=== PATIENT | female | born 1990 | race Hispanic/Latino ===

== ENCOUNTER 2019-07-17 09:00 | Emergency (ER) | payer MEDICAID ==
[2019-07-17 09:18] LABS: APPEARANCE,URINE Cloudy (CLEAR); BILIRUBIN,URINE Negative (NEGATIVE); COLOR,URINE Yellow (YELLOW); GLUCOSE, URINE (UA) Negative (NEGATIVE); KETONES,URINE Negative (NEGATIVE); LEUKOCYTE ESTERASE ,URINE Moderate (NEGATIVE); NITRATE,URINE Negative (NEGATIVE); OCCULT BLOOD,URINE Negative (NEGATIVE); PH,URINE 5.5 (5.0-8.0); PROTEIN,URINE Negative (NEGATIVE)
[2019-07-17 09:21] LABS: HCG,QUAL RESULT NEGATIVE (NEGATIVE)
[2019-07-17 09:33] LABS: BASOPHILS % (AUTO) 0.3 % (0.0-5.0); EOSINOPHILS % (AUTO) 2.3 % (0.0-8.0); HEMATOCRIT 37.1 % (36-48); LYMPHOCYTES % (AUTO) 9.3 % (21.0-51.0); MEAN CORPUSCULAR HEMOGLOBIN 26.8 pg (27.0-33.0); MEAN CORPUSCULAR HGB CONC 33.3 g/dL (32.0-36.0); MEAN CORPUSCULAR VOLUME 80.5 fL (79-99); MONOCYTES % (AUTO) 4.5 % (3.0-13.0); NEUTROPHILS % (AUTO) 83.6 % (40.0-77.0); PLATELET COUNT (AUTO) 293 K/uL (130-400); RED BLOOD CELL COUNT(AUTO) 4.61 MIL/uL (4.00-5.50); RED CELL DISTRIBUTION WIDTH 14.1 % (11.0-15.5); WHITE BLOOD COUNT (AUTO) 14.7 K/uL (4.8-10.8)
[2019-07-17 09:34] LABS: CREATININE 0.7 mg/dL (0.5-1.5); POTASSIUM 4.2 mmol/L (3.5-5.1)
[2019-07-17 09:39] LABS: ALBUMIN 3.7 g/dL (3.5-5.0); BILIRUBIN,TOTAL 0.6 mg/dL (0.2-1.0); TOTAL PROTEIN, SERUM 7.8 g/dL (6.0-8.3)
[2019-07-17 09:43] LABS: BACTERIA,URINE Few /HPF (None Seen); MUCUS,URINE Many LPF (None Seen); RBC,URINE None Seen /HPF (0-1)
[2019-07-17 09:44] LABS: CALCIUM OXALATE CRYSTALS,UR Moderate /LPF (None Seen)
== END 2019-07-17 11:48 | disposition home or self-care (01) ==
LOC: EDH 09:00
DX: K80.50 Calculus of bile duct without cholangitis or cholecystitis without obstruction (principal)
CPT/HCPCS: 36415; 76705; 80053; 81001; 81025; 83690; 85025

== ENCOUNTER 2019-07-17 22:21 | Inpatient (IN) | payer MEDICAID ==
[~2019-07-17] VITALS: Ht 167.6 cm; Wt 87.5 kg
[2019-07-17] MEDS ORDERED: SODIUM CHLORIDE 0.9% 1000ML 2,000 ML IV ONE (22:45)
[2019-07-17 22:48] LABS: APPEARANCE,URINE Clear (CLEAR); BILIRUBIN,URINE Negative (NEGATIVE); COLOR,URINE Dark Yellow (YELLOW); GLUCOSE, URINE (UA) Negative (NEGATIVE); KETONES,URINE Negative (NEGATIVE); LEUKOCYTE ESTERASE ,URINE Small (NEGATIVE); NITRATE,URINE Negative (NEGATIVE); OCCULT BLOOD,URINE Negative (NEGATIVE); PH,URINE 6.5 (5.0-8.0); PROTEIN,URINE Negative (NEGATIVE)
[2019-07-17] MEDS ORDERED: FAMOTIDINE/PF 20 MG/2 ML VIAL IV ONE (22:48)
[2019-07-17] MEDS ORDERED: ONDANSETRON HCL 4 MG/2 ML VIAL ONE (22:48)
[2019-07-17] MEDS ORDERED: METOCLOPRAMIDE 10 MG/2 ML VIAL ONE (22:48)
[2019-07-17 22:51] LABS: BASOPHILS % (AUTO) 0.6 % (0.0-5.0); EOSINOPHILS % (AUTO) 2.3 % (0.0-8.0); HEMATOCRIT 36.3 % (36-48); LYMPHOCYTES % (AUTO) 15.6 % (21.0-51.0); MEAN CORPUSCULAR HEMOGLOBIN 26.4 pg (27.0-33.0); MEAN CORPUSCULAR HGB CONC 32.9 g/dL (32.0-36.0); MEAN CORPUSCULAR VOLUME 80.3 fL (79-99); NEUTROPHILS % (AUTO) 75.5 % (40.0-77.0); NUCLEATED RED BLOOD CELLS 0.1 % (0.0-0.19); PLATELET COUNT (AUTO) 299 K/uL (130-400); RED BLOOD CELL COUNT(AUTO) 4.53 MIL/uL (4.00-5.50); RED CELL DISTRIBUTION WIDTH 14.3 % (11.0-15.5); WHITE BLOOD COUNT (AUTO) 11.2 K/uL (4.8-10.8)
[2019-07-17 23:00] LABS: BACTERIA,URINE Few /HPF (None Seen); MUCUS,URINE Few LPF (None Seen); RBC,URINE 0-1 /HPF (0-1); SQUAMOUS EPITHELIAL CELL,UR 0-2 /HPF (0-2); WBC,URINE 0-1 /HPF (0-1)
[2019-07-17 23:06] LABS: INR 0.97 (0.85-1.15); PROTHROMBIN TIME 10.2 SEC (9.6-11.6)
[2019-07-17 23:08] LABS: CREATININE 0.7 mg/dL (0.5-1.5); POTASSIUM 3.6 mmol/L (3.5-5.1)
[2019-07-17 23:12] LABS: ALBUMIN 3.8 g/dL (3.5-5.0); BILIRUBIN,TOTAL 1.2 mg/dL (0.2-1.0); TOTAL PROTEIN, SERUM 7.5 g/dL (6.0-8.3)
[2019-07-18] MEDS ORDERED: ZOSYN 3.375GM+NS 50ML 50 ML IV ONE (00:38)
[2019-07-18] MEDS ORDERED: ACETAMINOPHEN 325 MG TAB PO PRN (02:15)
[2019-07-18 05:48] LABS: BASOPHILS % (AUTO) 0.4 % (0.0-5.0); EOSINOPHILS % (AUTO) 1.1 % (0.0-8.0); HEMATOCRIT 34.3 % (36-48); LYMPHOCYTES % (AUTO) 13.7 % (21.0-51.0); MEAN CORPUSCULAR HEMOGLOBIN 26.9 pg (27.0-33.0); MEAN CORPUSCULAR HGB CONC 33.6 g/dL (32.0-36.0); MEAN CORPUSCULAR VOLUME 80.2 fL (79-99); MONOCYTES % (AUTO) 5.4 % (3.0-13.0); NEUTROPHILS % (AUTO) 79.4 % (40.0-77.0); PLATELET COUNT (AUTO) 230 K/uL (130-400); RED BLOOD CELL COUNT(AUTO) 4.27 MIL/uL (4.00-5.50); RED CELL DISTRIBUTION WIDTH 13.9 % (11.0-15.5); WHITE BLOOD COUNT (AUTO) 9.6 K/uL (4.8-10.8)
[2019-07-18 05:57] LABS: CREATININE 0.6 mg/dL (0.5-1.5); POTASSIUM 3.8 mmol/L (3.5-5.1)
[2019-07-18 06:13] LABS: ALBUMIN 2.9 g/dL (3.5-5.0); BILIRUBIN,TOTAL 1.9 mg/dL (0.2-1.0); TOTAL PROTEIN, SERUM 6.1 g/dL (6.0-8.3)
[2019-07-18 08:00] VITALS: BP 120/78
[2019-07-18] MEDS ORDERED: ZOSYN 3.375GM+NS 50ML 50 ML IV SCH (08:00)
--- NOTE | 2019-07-18 08:00 | NUR ---
PT AAO X 3 REVIEW PLAN OF CARE. PT HISTORY WAS BORN WITH CATARACT SINCE .STATED THAT SHE HAS SOME VISIONAL SEE BLURRY, AND SHADOW AND NEEDS SOME ASSISTANCE SOME TIME REVIEW CALL LIGHT IN REACH ,AND BED LEVEL DOWN AND A REMINDER THAT SHE NEEDS TO STAY IN BED . AND NOT TO GET UP. BY HER SELF .PT IS ABLE TO FOCUS WITH HER CARE.
--- NOTE | 2019-07-18 08:00 | NUR ---
HISTORY OF SEIZURES PADS. APPLICATION ON . PT STATED THAT SHE HAD THIS COMPLICATION DURING HER
--- NOTE | 2019-07-18 09:45 | NUR ---
DR. TREVINO CALLED ,REGARDING CONSULTATION ADMISSION LABS . AND DATA GIVEN
[2019-07-18 11:00] VITALS: BP 122/57
[2019-07-18] MEDS: SODIUM CHLORIDE 0.9% 1000ML 1,000 ML IV SCH ×2 (12:32→20:53)
[2019-07-18] MEDS: ZOSYN 3.375GM+NS 50ML 50 ML IV SCH ×2 (13:38→20:53)
--- NOTE | 2019-07-18 14:00 | NUR ---
DR. RACHEL HERE, AND REVIEW PLAN OF CARE, WITH TO FOLLOW .
[2019-07-18] MEDS ORDERED: GADODIAMIDE 10 MMOL/20 ML VIAL IV ONE (15:16)
[2019-07-18 16:00] VITALS: BP 122/77
--- NOTE | 2019-07-18 17:20 | NUR ---
cm note met with patient and states resides at home with aunt, brother Sagar, and boyfriend, pt states is ambulatory, no dme. is Blind, and does have someone always with her when ambulating. has provider approx 24hr/week. no dme. dcplan is back to home. no dc needs. Addendum: 07/18/19 at 1722 by OSWALD NEWMAN CM Amended: Links added.
--- NOTE | 2019-07-18 18:10 | NUR ---
PAGED .DR TREVINO REASON . MRSP .RESULTS NO RESPOND .
[2019-07-18 19:40] VITALS: BP 116/70
--- NOTE | 2019-07-18 20:53 | NUR ---
MEDS SHIFT ASSESSMENT DONE, PLEASE REFER TO CHART. DUE MEDS AND NEW IVF BAG HUNG. KEPT RESTED AND COMFORTABLE IN BED. CALL LIGHT WITHIN REACH. WILL MONITOR PT. Addendum: 07/19/19 at 0014 by TAZ MARIO RN RN Amended: Links added.
--- NOTE | 2019-07-18 21:40 | NUR ---
CALL TRIED TO CALL DR TREVINO VIA PHONE BUT NO ANSWERING SERVICE. [facility] NURSE MADE AWARE AND CP NUMBER OF MD OBTAINED. CALLED MD AND REFERRED MRCP RESULTS. NEW ORDERS GIVEN, PLEASE REFER TO CPOE.
[2019-07-18 23:39] VITALS: BP 110/65
[2019-07-19] VITALS (22 sets, daily range): BP systolic 110–142; BP diastolic 59–90
--- NOTE | 2019-07-19 02:00 | NUR ---
ROUNDS PT RESTING WELL, FAIRLY ASLEEP WITH RESPIRATIONS EVEN AND UNLABORED. NO NOTED DISTRESS. KEPT UNDISTURBED FOR NOW WILL MONITOR PT.
[2019-07-19] MEDS: ZOSYN 3.375GM+NS 50ML 50 ML IV SCH ×3 (04:47→20:56)
[2019-07-19] MEDS: SODIUM CHLORIDE 0.9% 1000ML 1,000 ML IV SCH ×3 (05:36→20:56)
[2019-07-19 05:51] LABS: MEAN CORPUSCULAR HEMOGLOBIN 27.5 pg (27.0-33.0); MEAN CORPUSCULAR HGB CONC 34.1 g/dL (32.0-36.0); MEAN CORPUSCULAR VOLUME 80.6 fL (79-99); PLATELET COUNT (AUTO) 264 K/uL (130-400); RED BLOOD CELL COUNT(AUTO) 4.34 MIL/uL (4.00-5.50); RED CELL DISTRIBUTION WIDTH 14.2 % (11.0-15.5); WHITE BLOOD COUNT (AUTO) 7.3 K/uL (4.8-10.8)
[2019-07-19 06:11] LABS: ALBUMIN 3.1 g/dL (3.5-5.0); BILIRUBIN,TOTAL 2.5 mg/dL (0.2-1.0); CREATININE 0.6 mg/dL (0.5-1.5); POTASSIUM 3.4 mmol/L (3.5-5.1); TOTAL PROTEIN, SERUM 6.6 g/dL (6.0-8.3)
--- NOTE | 2019-07-19 06:43 | NUR ---
CALLED DR TREVINO AND INFORMED OF LTF'S RESULTS. ORDER FOR ERCP AT 0745AM RECEIVED. [facility]OURCE NURSE MADE AWARE. FAXED ORDER TO [facility].
--- NOTE | 2019-07-19 07:25 | NUR ---
CONSENT REPORT GIVEN TO INCOMING SHIFT, DEBBIE PRESTON. AWAKENED PT THEN INFORMED PT OF ORDER FOR ERCP TODAY. PT VERBALIZES UNDERSTANDING. CONSENT SIGNED BY PT WITNESSED BY BROTHER JESSICA AND INSURANCE RATER. FOR MORE CARE AND MANAGEMENT.
--- NOTE | 2019-07-19 07:50 | NUR ---
TO GI LAB FOR A ERCP . STAFF AT THE BEDSIDE .
[2019-07-19] MEDS ORDERED: SUCCINYLCHOLINE 200MG/10ML SYR ONE (08:03)
[2019-07-19] MEDS ORDERED: LIDOCAINE PF 2% 5ML ABBOJECT ONE (08:03)
[2019-07-19] MEDS ORDERED: ROCURONIUM 10MG/1ML SYR 10 MG/ML ML ONE (08:04)
[2019-07-19] MEDS ORDERED: MIDAZOLAM HCL 1 MG/ML 2ML VIAL ONE (08:04)
[2019-07-19] MEDS ORDERED: PROPOFOL 10 MG/ML 20ML VIAL IV ONE ×2 (08:04→08:35)
[2019-07-19] MEDS ORDERED: ONDANSETRON HCL 4 MG/2 ML VIAL ONE (08:05)
[2019-07-19] MEDS ORDERED: FENTANYL CITRATE PF 50 MCG/1 ML 2ML VIAL ONE (08:07)
[2019-07-19] MEDS ORDERED: IOHEXOL-350 50ML VIAL IV ONE (08:17)
[2019-07-19] MEDS ORDERED: INDOMETHACIN 50 MG SUPP.RECT RC SCH (09:00)
--- NOTE | 2019-07-19 09:45 | NUR ---
PT BACK FROM GI LAB , PT AAO X [address] ORDERS AND POSTOP CARE. NO C/O OF PAIN HOB . BED LEVEL DOWN . CALL LIGHT IN REACH. POSTOP V/S MONITOR /
[2019-07-19] MEDS: HYDROMORPHONE HCL 2 MG/ML VIAL IVP PRN (16:48)
--- NOTE | 2019-07-19 21:00 | NUR ---
MEDS SHIFT ASSESSMENT DONE, PT COMPLAINT SOF ABDOMINAL PAINS AND NAUSEA. DUE MEDS ADMINISTERED, TYLENOL PO GIVEN FOR PAINS AND ZOFRAN GIVEN FOR NAUSEA. KEPT RESTED AND COMFORTABLE IN BED. INSTRUCTED PT TO BE NPO POST MN FOR SX IN AM, VERBALIZES UNDERSTANDING. CALL LIGHT WITHIN REACH. WILL RE-ASSESS PT. Addendum: 07/20/19 at 0210 by TAZ MARIO RN RN Amended: Links added.
[2019-07-19] MEDS: ONDANSETRON HCL 4 MG/2 ML VIAL IVP PRN (21:08)
[2019-07-20] VITALS (25 sets, daily range): BP systolic 118–138; BP diastolic 59–80
[2019-07-20] MEDS: SODIUM CHLORIDE 0.9% 1000ML 1,000 ML IV SCH ×4 (01:14→12:30)
[2019-07-20] MEDS: HYDROMORPHONE HCL 2 MG/ML VIAL IVP PRN ×2 (01:24→18:50)
--- NOTE | 2019-07-20 01:24 | NUR ---
PAIN PT AWAKENS AND COMPLAINTS OF ABDOMINAL PAINS. MEDICATED WITH DILAUDID IV. KEPT COMFORTABLE IN BED WITH HOB ELEVATED. WILL RE-ASSESS PT. CALL LIGHT WITHIN REACH. PT'S BROTHER ASLEEP AT BEDSIDE.
--- NOTE | 2019-07-20 03:55 | NUR ---
PAIN PT CLAIMS OF ABDOMINAL PAINS BUT INTERMITTENT. EXPLAINED THAT PAIN MEDS WERE JUST GIVEN 2 HOURS AGO AND CAN NOT BE GIVEN YET. PT VERBALIZES UNDERSTANDING. WARM PACKS APPLIED TO RUQ AREA. WILL RE-ASSESS PT. Addendum: 07/20/19 at 0402 by TAZ MARIO RN RN Amended: Links added.
[2019-07-20] MEDS: ZOSYN 3.375GM+NS 50ML 50 ML IV SCH ×3 (04:14→21:34)
[2019-07-20 04:40] LABS: BASOPHILS % (AUTO) 0.2 % (0.0-5.0); EOSINOPHILS % (AUTO) 2.3 % (0.0-8.0); HEMATOCRIT 32.6 % (36-48); LYMPHOCYTES % (AUTO) 17.2 % (21.0-51.0); MEAN CORPUSCULAR HGB CONC 33.7 g/dL (32.0-36.0); MONOCYTES % (AUTO) 4.8 % (3.0-13.0); NEUTROPHILS % (AUTO) 75.5 % (40.0-77.0); PLATELET COUNT (AUTO) 257 K/uL (130-400); RED BLOOD CELL COUNT(AUTO) 4.07 MIL/uL (4.00-5.50); RED CELL DISTRIBUTION WIDTH 14.4 % (11.0-15.5); WHITE BLOOD COUNT (AUTO) 8.7 K/uL (4.8-10.8)
[2019-07-20 05:06] LABS: ALBUMIN 2.8 g/dL (3.5-5.0); BILIRUBIN,TOTAL 1.5 mg/dL (0.2-1.0); CREATININE 0.5 mg/dL (0.5-1.5); POTASSIUM 3.5 mmol/L (3.5-5.1); TOTAL PROTEIN, SERUM 5.8 g/dL (6.0-8.3)
--- NOTE | 2019-07-20 06:35 | NUR ---
OR PT TAKEN DOWN TO SURGERY.
[2019-07-20] MEDS ORDERED: HEPARIN SODIUM 1000UNIT/ML 10ML VIAL ONE (06:47)
[2019-07-20] MEDS ORDERED: LIDOCAINE HCL MPF 1% 5ML VIAL ONE (07:03)
[2019-07-20] MEDS ORDERED: PROPOFOL 10 MG/ML 20ML VIAL IV ONE (07:04)
[2019-07-20] MEDS ORDERED: MIDAZOLAM HCL 1 MG/ML 2ML VIAL ONE (07:04)
[2019-07-20] MEDS ORDERED: ROCURONIUM 10MG/1ML SYR 10 MG/ML ML ONE (07:04)
[2019-07-20] MEDS ORDERED: FENTANYL CITRATE PF 50 MCG/1 ML 2ML VIAL ONE (07:04)
[2019-07-20] MEDS ORDERED: FENTANYL CITRATE PF 50 MCG/1 ML 5ML AMP IV ONE (07:19)
[2019-07-20] MEDS ORDERED: KETOROLAC TROMETHAMINE 30MG/ML ONE (07:23)
[2019-07-20] MEDS ORDERED: ONDANSETRON HCL 4 MG/2 ML VIAL ONE (07:23)
[2019-07-20] MEDS ORDERED: GLYCOPYRROLATE 1 MG/5 ML SYRINGE ONE (07:23)
[2019-07-20] MEDS ORDERED: DEXAMETHASONE SOD PHOSPHATE 10MG/ML 1ML VIAL ONE (07:23)
[2019-07-20] MEDS ORDERED: NEOSTIGMINE 5MG/5ML SYR IV ONE (07:24)
[2019-07-20] MEDS: LACTATED RINGERS 1000ML 1,000 ML IV SCH ×2 (08:08→21:38)
[2019-07-20] MEDS ORDERED: ACETAMINOPHEN-CODEINE 300/30MG TAB PO PRN (08:15)
[2019-07-20] MEDS ORDERED: METOCLOPRAMIDE 10 MG/2 ML VIAL ONE (08:29)
[2019-07-20] MEDS: ONDANSETRON HCL 4 MG/2 ML VIAL IVP PRN ×2 (08:31→18:49)
[2019-07-20] MEDS ORDERED: MEPERIDINE-PF 25 MG/ML SYG ONE (08:34)
--- NOTE | 2019-07-20 21:38 | NUR ---
MEDS SHIFT ASSESSMENT DONE, PLEASE REFER TO CHART. DUE MEDS AND IVF HUNG. KEPT RESTED AND COMFORTABLE IN BED. CALL LIGHT WITHIN REACH. FAMILY AT BEDSIDE. WILL MONITOR PT. Addendum: 07/20/19 at 2213 by TAZ MARIO RN RN Amended: Links added.
--- NOTE | 2019-07-21 02:10 | NUR ---
ROUNDS PT RESTING WELL, FAIRLY ASLEEP WITH RESPIRATIONS EVEN AND UNLABORED. NO NOTED DISTRESS. KEPT UNDISTURBED FOR NOW. WILL MONITOR PT. CALL LIGHT WITHIN REACH.
[2019-07-21] MEDS: LACTATED RINGERS 1000ML 1,000 ML IV SCH (03:20)
[2019-07-21 03:49] VITALS: BP 135/70
[2019-07-21] MEDS: ZOSYN 3.375GM+NS 50ML 50 ML IV SCH (03:53)
--- NOTE | 2019-07-21 04:05 | NUR ---
PAIN PT REQUESTED TO USE THE RESTROOM. ASSISTED PT TO AND BACK IN BED. PT CLAIMS OF POST OP ABDOMINAL PAINS. MEDICATED WITH TYLENOL #3 1 TAB PO. KEPT RESTED AND COMFORTABLE. WILL RE-ASSESS PT. Addendum: 07/21/19 at 0438 by TAZ MARIO RN RN Amended: Links added.
[2019-07-21 07:28] VITALS: BP 123/59
--- NOTE | 2019-07-21 08:00 | NUR ---
Pt lying comfortable in bed, denying pain at the moment. Bowel sounds present and no distention. Stated she has tolerated diet well up to this point
[2019-07-21 11:25] VITALS: BP 113/71
--- NOTE | 2019-07-21 14:00 | NUR ---
Pt sitting up to the chair after she took a shower, tolerating well. Patient and her are a a hurry to go home because she said that she has been away from her baby for a couple of days and misses him. Informed patient and her that that Dr Powers has been informed that we are just waiting for his discharge orders since surgery clear her to be discharged.
[2019-07-21] MEDS ORDERED: AMOX-429 PO (15:44)
== END 2019-07-21 16:32 | disposition home or self-care (01) | DRG 263 ==
LOC: EDH 22:21 → OBSVTOIN 22:22 → EDHIP 22:22 → 4BH 07-18 07:51
PROVIDERS: ADMIT Internal Medicine Nephrology; ATTEND Internal Medicine Nephrology
PROC: 0FC98ZZ Extirpation of Matter from Common Bile Duct, Via Natural or Artificial Opening Endoscopic (ICD-10-PCS; 2019-07-19)
PROC: BF131ZZ Fluoroscopy of Gallbladder and Bile Ducts using Low Osmolar Contrast (ICD-10-PCS; 2019-07-19)
PROC: 0FT44ZZ Resection of Gallbladder, Percutaneous Endoscopic Approach (ICD-10-PCS; principal; 2019-07-20 07:00)
DX: K80.44 Calculus of bile duct with chronic cholecystitis without obstruction (principal); H54.8 Legal blindness, as defined in USA; I10 Essential (primary) hypertension; Q12.0 Congenital cataract; Z98.51 Tubal ligation status
CPT/HCPCS: 36415; 43262; 43264; 74183; 74330; 76705; 80053; 81001; 81025; 82550; 83605; 83690; 85025; 85027; 85610; 85730; 87040; 88304; A4606; A9579; C1769; C1773; G0378; J0330; J1100; J1170; J1644; J1885; J2001; J2175; J2250; J2405; J2543; J2704; J2710; J2765; J3010; J3490; J7030; J7120; Q9967